=== PATIENT | male | born 1995 | race Two or more races ===

== ENCOUNTER 2017-08-21 18:19 | Emergency (ER) ==
[2017-08-21 18:22] VITALS: BP 119/77; TEMP 100.4; BMI 19.0
[2017-08-21] MEDS ORDERED: TYLENOL PO STA (19:09)
--- NOTE | 2017-08-21 19:11 | ED.PDOC ---
General ED Provider: Dr. YOLA ROSS Chief Complaint: Abdominal Pain Stated Complaint: Been hurting in the right lower abdomen, 2 days, nausea and vomiting, fever chills. Time Seen by Physician: 19:09 Mode of Arrival: Walk-In Information Source: Patient Nursing and Triage Documentation Reviewed and Agree: Yes Reviewed sepsis parameters & appropriate labs ordered?: Yes System Inflammatory Response Syndrome: Pulse >90 BPM Sepsis Protocol: For patient's 13 years and over: Temp is 96.8 and below OR 101 and greater Pulse >90 BPM Resp >20/minute Acutely Altered Mental Status Are patient's symptoms suggestive of a new infection, such as: -Pneumonia -Skin, Soft Tissue -Endocarditis -UTI -Bone, Joint Infection -Implantable Device -Acute Abdominal Infection -Wound Infection -Meningitis -Blood Stream Catheter Infection -Unknown GI Complaint Exam - Abdominal Pain Complaint/Exam Symptoms Are: Still present Timing: Constant Initial Severity: Moderate Current Severity: Moderate Location of Pain: RLQ Radiates To: Reports: Flank Character: Reports: Dull, Aching, Throbbing Aggravating: Reports: Movement, Food, Deep breaths Alleviating: Reports: None Associated Signs and Symptoms: Reports: Fever, Nausea, Vomiting, Diarrhea. Denies: Diaphoresis, Cough, Chest pain, Dizziness, Back pain, Constipation, Blood in stool, Dysuria, Urinary frequency, Decreased urine output, Decreased appetite, Discharge, Decreased activity AAA Risk Factors: Reports: None Cardiac Risk Factors: Reports: None Testicular Torsion Risk Factors: Reports: None Surgical Obstruction Risk Factors: Reports: None Related Surgical History: Reports: None Abdominal Findings: Present: None Differential Diagnoses: Appendicitis Review of Systems - Review Of Systems Constitutional: Reports: No symptoms Eyes: Reports: No symptoms Ears, Nose, Mouth, Throat: Reports: No symptoms Respiratory: Reports: No symptoms Cardiac: Reports: No symptoms GI: Reports: Abdominal pain, Nausea, Vomiting : Reports: No symptoms Musculoskeletal: Reports: No symptoms Skin: Reports: No symptoms Neurological: Reports: No symptoms Endocrine: Reports: No symptoms Hematologic/Lymphatic: Reports: No symptoms All Other Systems: Reviewed and Negative Past Medical History - Past Medical History Previously Healthy: Yes Endocrine: Reports: None Cardiovascular: Reports: None Respiratory: Reports: None Hematological: Reports: None Gastrointestinal: Reports: None Genitourinary: Reports: None Neuro/Psych: Reports: None Musculoskeletal: Reports: None Cancer: Reports: None - Surgical History General Surgical History: Reports: None - Family History Family History: Reports: None - Social History Smoking Status: Never smoker Hx Substance Use: No Alcohol Screening: None Physical Exam - Physical Exam Appearance: Ill-appearing, Thin Eyes: PEARL, EOMI, Conjunctiva clear ENT: Ears normal, Nose normal, Oropharynx normal Respiratory: Airway patent, Breath sounds clear, Breath sounds equal, Respirations nonlabored Cardiovascular: RRR, Pulses normal, No rub, No murmur GI/: Soft, Tender Musculoskeletal: Normal strength, ROM intact, No edema, No calf tenderness Skin: Warm, Dry, Normal color Neurological: Sensation intact, Motor intact, Reflexes intact, Cranial nerves intact, Alert, Oriented Psychiatric: Affect appropriate, Mood appropriate Interpretation - Radiology Interpretation Radiology Interpretation By: Radiologist Radiology Results: Positive Exam Interpreted: CT Scan Physician Notification - Case Discussed Time of Notification: 21:51 (Dr Mary arciniega) Critical Care Note - Critical Care Note Total Time (mins): 30 Course - Course Hematology/Chemistry: 08/21/17 19:26 08/21/17 19:26 Orders, Labs, Meds: Lab Review 08/21/17 08/21/17 08/21/17 19:00 19:26 19:26 WBC 14.87 H RBC 4.77 Hgb 15.1 Hct 43.0 MCV 90.1 MCH 31.7 H MCHC 35.1 RDW Coeff of Geovanna 13.1 Plt Count 187 Immature Gran % (Auto) 0.3 Neut % (Auto) 79.5 Lymph % (Auto) 11.4 [place] % (Auto) 8.5 Eos % (Auto) 0.1 Baso % (Auto) 0.2 Immature Gran # (Auto) 0.1 Neut # (Auto) 11.8 H Lymph # (Auto) 1.7 [place] # (Auto) 1.3 Eos # (Auto) 0.0 Baso # (Auto) 0.0 Sodium 137 Potassium 3.5 Chloride 98 Carbon Dioxide 25 Anion Gap 17.5 BUN 14 Creatinine 1.06 Estimated GFR (MDRD) 89.00 BUN/Creatinine Ratio 13.20 Glucose 87 Lactic Acid Calcium 10.2 Total Bilirubin 1.4 H AST 15 ALT 17 Alkaline Phosphatase 66 Total Protein 9.0 H Albumin 4.6 Globulin 4.4 Albumin/Globulin Ratio 1.05 Amylase 55 Lipase 11 Procalcitonin Influ A Molecular Assay Negative by naat Influ B Molecular Assay Negative by naat 08/21/17 08/21/17 19:26 19:26 WBC RBC Hgb Hct MCV MCH MCHC RDW Coeff of [place]ovanna Plt Count Immature Gran % (Auto) Neut % (Auto) Lymph % (Auto) [place] % (Auto) Eos % (Auto) Baso % (Auto) Immature Gran # (Auto) Neut # (Auto) Lymph # (Auto) [place] # (Auto) Eos # (Auto) Baso # (Auto) Sodium Potassium Chloride Carbon Dioxide Anion Gap BUN Creatinine Estimated GFR (MDRD) BUN/Creatinine Ratio Glucose Lactic Acid 9.5 Calcium Total Bilirubin AST ALT Alkaline Phosphatase Total Protein Albumin Globulin Albumin/Globulin Ratio Amylase Lipase Procalcitonin 0.11 Influ A Molecular Assay Influ B Molecular Assay Orders Category Date Time Status NPO REMINDER: IMAGING ONCE CARE 08/21/17 19:09 Completed ED IV/MEDIPORT/POWERPORT .ONCE EMERGENCY 08/21/17 19:16 Active AMYLASE Stat LAB 08/21/17 19:26 Completed BLOOD CULTURE Stat LAB 08/21/17 19:26 Received CBC W/ AUTO DIFF Stat LAB 08/21/17 19:26 Completed COMPREHENSIVE METABOLIC PANEL Stat LAB 08/21/17 19:26 Completed FLU A/B MOLECULAR Stat LAB 08/21/17 19:00 Completed LACTIC ACID Stat LAB 08/21/17 19:26 Completed LIPASE Stat LAB 08/21/17 19:26 Completed PROCALCITONIN Stat LAB 08/21/17 19:26 Completed 0.9 % Sodium Chloride [Saline Flush] MEDS 08/21/17 19:16 Ordered 1 syr IVF PRN PRN Acetaminophen [Tylenol] MEDS 08/21/17 19:09 Discontinued 500 mg PO ONCE STA Piperacillin Sodium/Tazobactam [Zosyn 3.375 gm] 3.375 MEDS 08/21/17 20:43 Discontinued gm 0.9 % Sodium Chloride [Sodium Chloride] 50 ml IV ONCE Sodium Chloride 0.9% [Sodium Chloride] 1,000 ml MEDS 08/21/17 19:16 Active IV 100 mls/hr CT ABDOMEN/PELVIS W CONTRAST Stat RADS 08/21/17 19:08 Completed Medications Generic Name Dose Route Start Last Admin Trade Name Freq PRN Reason Stop Dose Admin Sodium Chloride 1,000 mls @ 100 mls/hr 08/21/17 19:16 08/21/17 19:28 Sodium Chloride IV 08/22/17 05:15 100 mls/hr .Q10H STA Administration Sodium Chloride 1 syr 08/21/17 19:16 Saline Flush IVF PRN PRN To flush IV Discontinued Medications Generic Name Dose Route Start Last Admin Trade Name Freq PRN Reason Stop Dose Admin Acetaminophen 500 mg 08/21/17 19:09 08/21/17 19:14 Tylenol PO 08/21/17 19:10 500 mg ONCE STA Administration Piperacillin Sod/Tazobactam 50 mls @ 50 mls/hr 08/21/17 20:43 08/21/17 20:58 Sod 3.375 gm/ Sodium Chloride IV 08/21/17 21:42 50 mls/hr ONCE STA Administration Vital Signs: Temp Pulse Resp BP Pulse Ox 08/21/17 18:19 100.4 F H 96 H 16 119/77 98 Departure - Departure Time of Disposition: 21:52 Disposition: TSF OTHER Discharge Problem: Appendicitis Qualifiers: Appendicitis type: acute appendicitis Acute appendicitis type: with localized peritonitis Qualified Code(s): K35.3 - Acute appendicitis with localized peritonitis Instructions: Acute Abdominal Pain (ED) Condition: Stable Pt referred to PMD for follow-up: Yes IPMP verified?: No Allergies/Adverse Reactions: Allergies No Known Allergies Allergy (Verified 08/21/17 18:22) Home Medications: Ambulatory Orders 1 [No Reported Medications] 08/21/17 Disposition Discussed With: Patient
[2017-08-21] MEDS ORDERED: SODIUM CHLORIDE 1,000 ML IV STA (19:16)
[2017-08-21] MEDS ORDERED: ZOSYN 3.375 GM 3.375 GM in SODIUM CHLORIDE 50 ML IV STA (20:43)
--- NOTE | 2017-08-21 20:49 | CT ---
EXAM: CT of the abdomen and pelvis with contrast. HISTORY: Abdominal pain.. COMPARISON: None. TECHNIQUE: Contiguous axial images at 3 mm intervals were obtained from lung bases to the pubic symp hysis. The study was performed after IV contrast. Oral contrast was not given. CONTRAST: IV only. FINDINGS: CHEST: The lung bases are clear. Heart size is within normal limits. ABDOMEN: LIVER: The liver demonstrates normal homogeneous enhancement without solid mass lesions or intrahepa tic ductal dilatation. GALLBLADDER: The gallbladder is normally distended. No gallstones are identified. PANCREAS: The pancreas demonstrates normal homogeneous enhancement without solid masses or surroundi ng inflammation. SPLEEN: The spleen demonstrates normal homogeneous enhancement. No mass lesions are identified. ADRENAL GLANDS: Normal. KIDNEYS: The kidneys demonstrate normal homogeneous enhancement without solid masses, hydronephrosis or nephrolithiasis. There are no obstructing ureteral stones. AORTA: The aorta is well opacified. There is no aneurysm or dissection. RETROPERITONEUM: There is no significant retroperitoneal or mesenteric adenopathy. No fluid collect ions or mass lesions. BOWEL: The bowel is unopacified. There are no dilated loops of small bowel to suggest small bowel o bstruction. There is no free fluid, free air or significant inflammatory process. The appendix is i dentified and is enlarged, measuring up to 12 mm. There is minimal surrounding inflammation. No tin e fluid, free air or abscess formation is identified.. A [id number] amount of stool is seen throughout the colon. There is no significant diverticulosis or evidence of acute diverticulitis. PELVIS: BLADDER: The bladder is well distended and appears normal. GENITOURINARY STRUCTURES: Unremarkable. OSSEOUS STRUCTURES: Normal for age. IMPRESSION: Enlarged appendix with minimal surrounding inflammation consistent with acute appendicitis. No evide nce of rupture or abscess formation. Critical result: Acute appendicitis. These findings were discussed with Dr. Chavez on 08/21/2017 at 8:42 p.m.
[2017-08-21] MEDS ORDERED: DEMEROL 25 MG/ML VIAL IVP STA (22:11)
[2017-08-21] MEDS ORDERED: ZOFRAN 4 MG/2 ML IVP STA (22:11)
== END 2017-08-21 22:37 | disposition short-term general hospital (02) ==
LOC: ED 18:19
DX: K35.3 Acute appendicitis with localized peritonitis (principal)
CPT/HCPCS: 36415; 80053; 82150; 83605; 83690; 84145; 85025; 87040; 87502; 96361; 96365; 96375; 99285

== ENCOUNTER 2017-08-21 22:34 | Outpatient (CLI) ==
[2017-08-21 18:22] VITALS: BMI 19.0
== END 2017-08-21 22:35 | disposition short-term general hospital (02) ==
LOC: AMBL 22:34
PROVIDERS: ATTEND Emergency Medicine
DX: K35.80 Unspecified acute appendicitis (principal)